=== PATIENT | male | born 1930 | race Caucasian/White ===

== ENCOUNTER → 2017-08-30 | Outpatient (CLI) | payer MEDICARE ==
[~2017-08-30] MED LIST: CIPRO500 MG PO; ENALAPRIL MALEA20 MG PO; GLYBURIDE5 MG PO; HUMULIN R100 UNIT/2; HYDROCHLOROTH12.5 M1 PO; KEFLEX PO; LANTUS 3ML100 UNITS/ SC; LASIX20 MG PO; LEVEMIR100 UNIT/1 SQ; LOVASTATIN40 MG PO; POTASSIUM CHLO10 ME1 PO; POTASSIUM CITR10 MEQ PO; PROPRANOLOL HC160 MG PO
[2017-08-30 14:26] LABS: BASOPHILS # (AUTO) 0.1 (0.0-0.1); BASOPHILS % 0.8 % (0.0-1.0); EOSINOPHILS # (AUTO) 0.2 (0.0-0.4); EOSINOPHILS % 2.5 % (0.0-6.0); HEMATOCRIT 47.8 % (38.2-49.6); HEMOGLOBIN 15.2 g/dL (14.0-18.0); LYMPHOCYTES # (AUTO) 2.3 (1.0-3.2); LYMPHOCYTES % 32.2 % (18.0-39.1); MEAN CORPUSCULAR HGB CONC 31.8 g/dL (31-35); MEAN CORPUSCULAR VOLUME 85.1 fL (81-99); MONOCYTES # (AUTO) 0.6 (0.2-0.8); MONOCYTES % 7.9 % (4.4-11.3); NEUTROPHILS # (AUTO) 4.1 (2.1-6.9); NEUTROPHILS % 56.3 % (38.7-80.0); PLATELET COUNT 152 x10e3/uL (140-360); RED BLOOD COUNT 5.62 x10e6/uL (4.3-5.7); RED CELL DISTRIBUTION WIDTH 13.8 % (11.7-14.4)
[2017-08-30 14:41] LABS: ALBUMIN 3.2 g/dL (3.5-5.0); ALBUMIN/GLOBULIN RATIO 0.8 (0.8-2.0); ANION GAP 14.1 mmol/L (8-16); CREATININE, SERUM 1.54 mg/dL (0.72-1.25)
[2017-08-30 14:43] LABS: POTASSIUM 5.1 mmol/L (3.5-5.1)
[2017-08-30 15:01] LABS: THYROID STIMULATING HORMONE 1.143 uIU/mL (0.350-4.940)
--- NOTE | 2017-08-30 17:01 | Diagnostic Imaging Report ---
EXAMINATION: MRI of the brain without contrast. HISTORY: Memory loss COMPARISON: None. TECHNIQUE: Sagittal T1 ultrathin slice with coronal and axial reformations; axial DWI, T2, FLAIR, T2 gradient echo. IMAGE QUALITY: Adequate. FINDINGS: DEMENTIA: Structural lesion: No intra- or extra-axial mass or hematoma. Ventricles: No hydrocephalus. Torrez matter signal intensity: Cortex: Unremarkable. Basal ganglia: Unremarkable. Thalami: Tiny chronic lacunar infarct bilaterally, otherwise normal. White matter signal intensity: Cerebral: Few scattered and mildly confluent periventricular white matter T2 and FLAIR hyperintense foci, most likely nonspecific chronic microvascular ischemic changes. Chronic lacunar infarcts in the bilateral frontal centrum semiovale and left caudate nucleus. Prominent perivascular space versus chronic lacunar infarct in the medial aspect of the left middle cerebellar pedicle. Brainstem: Chronic microvascular ischemic changes Mamillary bodies/fornices and hippocampi: No atrophy or abnormal signal. Microhemorrhages: None. Atrophy: Global: Symmetric and age-appropriate. Focal: No disproportionate lobar, hippocampal, mesencephalic, pontine, or cerebellar atrophy. Vessels: Expected flow voids present in the major arteries and dural sinuses. Sella: Unremarkable. OTHER: Subarachnoid spaces: No abnormal signal intensity. Foramen magnum: Unremarkable. Skull: Unremarkable. Paranasal / mastoid sinuses: No significant inflammatory disease. IMPRESSION: 1. No acute infarcts. 2. Mild chronic microvascular ischemic changes and small chronic lacunar infarct as detailed above. 3. Mild generalized brain volume loss, no disproportionate lobar atrophy. Signed by: Dr. Ivone Rosas M.D. on 08/30/2017 4:57 PM
== END ==
LOC: MRI 13:42
PROVIDERS: ATTEND Specialist
DX: R41.3 Other amnesia (principal); R26.81 Unsteadiness on feet; R32 Unspecified urinary incontinence
CPT/HCPCS: 36415; 70551; 80053; 82607; 84443; 85025

== ENCOUNTER → 2018-04-25 | Outpatient (CLI) | payer MEDICARE ==
--- NOTE | 2018-04-25 13:22 | Diagnostic Imaging Report ---
Exam: Head CT without contrast History: Head trauma Comparison studies: Brain MRI 08/30/2017. Technique: Axial images were obtained from the skull base to the vertex. Coronal and sagittal images reconstructed from the axial data. Dose modulation, iterative reconstruction, and/or weight based adjustment of the mA/kV was utilized to reduce the radiation dose to as low as reasonably achievable. Radiation dose: Total DLP: 832 mGy*cm. Estimated effective dose: DLP x 0.015 Intravenous contrast: None Findings: Scalp: No abnormalities. Bones: No fractures, blastic or lytic lesions. Brain sulci: Mildly prominent. Ventricles: Mild compensatory dilatation. Extra-axial spaces: No masses, no fluid collection. Parenchyma: No mass, acute hemorrhage or acute cortical vascular insults. There are chronic lacunar infarcts in the bilateral deep centrum semiovale and burt radiata. A few scattered hypodensities in the supratentorial white matter and in the chauncey are nonspecific most compatible with chronic microvascular ischemic changes. A 4 mm hypodensity in the left brachium pontis that is junction with the chauncey may reflect chronic lacunar infarct or possibly incidental neuroglial cyst or prominent perivascular space. Sellar/suprasellar region: No abnormalities. Craniocervical junction: Patent foramen magnum. No Chiari one malformation. Incidental findings: Bilateral intraocular lens or placement. Atherosclerotic calcifications in the carotid siphons and left intradural vertebral artery. IMPRESSION: 1. No acute abnormal abnormalities. 2. Moderate generalized volume loss. 3. Mild chronic microvascular ischemic changes with chronic lacunar infarcts as described. 4. No changes from the previous brain MRI of 08/30/2017 when allowing for differences in imaging modality. Signed by: Dr. Kelvin Xie M.D. on 04/25/2018 1:19 PM
== END ==
LOC: CT 12:00
PROVIDERS: ATTEND Specialist
DX: S09.90XA Unspecified injury of head, initial encounter (principal)
CPT/HCPCS: 70450